=== PATIENT | female | born 1935 | race Caucasian/White ===

== ENCOUNTER 2017-11-14 08:43 | Emergency (ER) | payer MEDICARE, OTHER ==
[~2017-11-14] VITALS: Ht 157.5 cm; Wt 71.5 kg
[2017-11-14] MEDS ORDERED: LEVO500T89 PO (09:56)
[2017-11-14 10:45] VITALS: BP 160/50
== END 2017-11-14 10:55 | disposition home or self-care (01) ==
LOC: ER 08:44
DX: T81.89XA Other complications of procedures, not elsewhere classified, initial encounter (principal); I25.10 Atherosclerotic heart disease of native coronary artery without angina pectoris; I10 Essential (primary) hypertension; G89.29 Other chronic pain; Z90.710 Acquired absence of both cervix and uterus; Z98.890 Other specified postprocedural states; Z88.0 Allergy status to penicillin; Z86.73 Personal history of transient ischemic attack (TIA), and cerebral infarction without residual deficits; Z79.2 Long term (current) use of antibiotics
CPT/HCPCS: 99284; A6255; A6449

== ENCOUNTER 2017-11-20 09:22 | Day surgery (SDC) | payer MEDICARE, OTHER ==
[~2017-11-20 09:22] MED LIST: LEVO500T89 PO
[2017-11-20] MEDS ORDERED: LIDOcaine/PRILOcaine 5gm cream TP ONE (11:24)
[2017-11-20] MEDS ORDERED: CEPH500C5 (13:02)
[2017-11-20] MEDS ORDERED: LISI-600 (13:02)
[2017-11-20] MEDS ORDERED: HYDR-3964 (13:04)
[2017-11-20] MEDS ORDERED: CLOP75TA35 (13:04)
[2017-11-20] MEDS ORDERED: LEVO100T (13:04)
[2017-11-20] MEDS ORDERED: SIMV10TA6 PO (13:04)
[2017-11-20] MEDS ORDERED: CALC500T11 PO (13:13)
[2017-11-20] MEDS ORDERED: ASPI-1094 PO (13:13)
[2017-11-20] MEDS ORDERED: DIPH25CA83 PO (13:13)
[2017-11-20] MEDS ORDERED: FISH12002 PO (13:13)
[2017-11-20] MEDS ORDERED: MAGN400T6 PO (13:13)
[2017-11-20] MEDS ORDERED: PSYL575P22 PO (13:13)
[2017-11-20] MEDS ORDERED: ASCO500C15 PO (13:19)
[2017-11-20] MEDS ORDERED: CHOL10008 PO (13:19)
[2017-11-20] MEDS ORDERED: GLUC1CAP33 PO (13:20)
[2017-11-20] MEDS ORDERED: RED600CA2 PO (13:22)
== END 2017-11-20 12:03 | disposition home or self-care (01) ==
LOC: WOUND CARE 09:22
PROVIDERS: ATTEND Surgery
DX: T81.31XA Disruption of external operation (surgical) wound, not elsewhere classified, initial encounter (principal); L97.122 Non-pressure chronic ulcer of left thigh with fat layer exposed; L97.821 Non-pressure chronic ulcer of other part of left lower leg limited to breakdown of skin; I25.10 Atherosclerotic heart disease of native coronary artery without angina pectoris; I10 Essential (primary) hypertension; G89.29 Other chronic pain; Z79.2 Long term (current) use of antibiotics; Z90.710 Acquired absence of both cervix and uterus; Z86.73 Personal history of transient ischemic attack (TIA), and cerebral infarction without residual deficits; Y83.8 Other surgical procedures as the cause of abnormal reaction of the patient, or of later complication, without mention of misadventure at the time of the procedure
CPT/HCPCS: 97597; A6021; A6209; A6222